=== PATIENT | male | born 1940 | race Caucasian/White ===

== ENCOUNTER 2018-02-07 17:08 | Inpatient (IN) | payer MEDICARE ==
[~2018-02-07] VITALS: Ht 188 cm; Wt 84.8 kg
[~2018-02-07 17:08] MED LIST: ACET-2900 PO; ASPI-555 PO; CHOL200013 PO; CYAN100T PO; ESCI5TAB PO; FISH1CAP63 PO; FOLI1TAB15 PO; FURO20TA6 PO; LACT10SO9 PO; LORA1TAB3 PO; MAGNESIUM PO; THIAM100TB PO; VITA1CAP85 PO
[2018-02-07 17:47] LABS: BASOPHILS % (AUTO) 0.8 % (0.0-5.0); EOSINOPHILS % (AUTO) 0.3 % (0.0-8.0); HEMATOCRIT 41.2 % (42-54); LYMPHOCYTES % (AUTO) 18.6 % (21.0-51.0); MEAN CORPUSCULAR HEMOGLOBIN 37.9 pg (27.0-33.0); MEAN CORPUSCULAR VOLUME 111.2 fL (79-99); MONOCYTES % (AUTO) 14.7 % (3.0-13.0); NEUTROPHILS % (AUTO) 65.6 % (40.0-77.0); NUCLEATED RED BLOOD CELLS 0.1 % (0.0-0.19); PLATELET COUNT (AUTO) 215 K/uL (130-400); RED BLOOD CELL COUNT(AUTO) 3.71 MIL/uL (4.50-6.20); WHITE BLOOD COUNT (AUTO) 7.1 K/uL (4.8-10.8)
[2018-02-07 17:52] LABS: APPEARANCE,URINE Clear (CLEAR); BILIRUBIN,URINE Negative (NEGATIVE); COLOR,URINE Dark Yellow (YELLOW); GLUCOSE, URINE (UA) Negative (NEGATIVE); KETONES,URINE 40 mg/dL (NEGATIVE); LEUKOCYTE ESTERASE ,URINE Trace (NEGATIVE); NITRATE,URINE Negative (NEGATIVE); OCCULT BLOOD,URINE Negative (NEGATIVE); PH,URINE 5.5 (5.0-8.0); PROTEIN,URINE Trace (NEGATIVE)
[2018-02-07 18:00] LABS: AMPHET/METH SCREEN,URINE NEGATIVE (NEGATIVE); BARBITURATE SCREEN, URINE NEGATIVE (NEGATIVE); BENZODIAZEPINES SCREEN,URINE NEGATIVE (NEGATIVE); CANNABINOID SCREEN,URINE NEGATIVE (NEGATIVE); COCAINE SCREEN,URINE NEGATIVE (NEGATIVE); OPIATE SCREEN,URINE NEGATIVE (NEGATIVE); PHENCYCLIDINE SCREEN,URINE NEGATIVE (NEGATIVE)
[2018-02-07 18:01] LABS: BACTERIA,URINE Few /HPF (None Seen); RBC,URINE None Seen /HPF (0-1); WBC,URINE 0-1 /HPF (0-1)
[2018-02-07 18:02] LABS: SQUAMOUS EPITHELIAL CELL,UR 0-2 /HPF (0-2)
[2018-02-07 18:03] LABS: MUCUS,URINE Many LPF (None Seen)
[2018-02-07] MEDS ORDERED: SODIUM CHLORIDE 0.9% 1000ML 1,000 ML IV ONE (18:08)
[2018-02-07 18:18] LABS: POTASSIUM 4.2 mmol/L (3.5-5.1)
[2018-02-07 18:23] LABS: ALBUMIN 2.9 g/dL (3.5-5.0); BILIRUBIN,TOTAL 1.3 mg/dL (0.2-1.0); TOTAL PROTEIN, SERUM 6.1 g/dL (6.0-8.3)
[2018-02-07 18:24] LABS: CREATINE KINASE, TOTAL 64 U/L (21-232)
[2018-02-07 18:25] LABS: ALCOHOL, BLOOD < 3 mg/dL (0-10)
[2018-02-07] MEDS ORDERED: SODIUM CHLORIDE 0.9% 10 ML VIAL IVP PRN (20:45)
[2018-02-07] MEDS ORDERED: NITROGLYCERIN 0.4 MG SL TAB SL PRN (20:45)
[2018-02-07] MEDS ORDERED: LACTULOSE 20 GM/30 ML UDCUP PO PRN ×2 (20:45→23:00)
[2018-02-07] MEDS ORDERED: ONDANSETRON HCL 4 MG/2 ML VIAL IVP PRN (20:45)
[2018-02-07] MEDS: DIAZEPAM 5 MG TABLET PO SCH (21:00)
[2018-02-07 21:54] LABS: TROPONIN I 0.07 ng/mL (0.00-0.06)
[2018-02-07] MEDS ORDERED: LORAZEPAM 1 MG TABLET PO PRN (23:00)
[2018-02-07] MEDS ORDERED: ACETAMINOPHEN EXTENDED RELEASE 650 MG TABLET PO PRN (23:00)
[2018-02-08 03:57] VITALS: BP 134/73
[2018-02-08] MEDS: SODIUM CHLORIDE 0.9% 1000ML 1,000 ML IV SCH ×3 (04:45→12:45)
[2018-02-08 05:19] LABS: BASOPHILS % (AUTO) 0.8 % (0.0-5.0); EOSINOPHILS % (AUTO) 0.4 % (0.0-8.0); HEMATOCRIT 39.6 % (42-54); LYMPHOCYTES % (AUTO) 26.8 % (21.0-51.0); MEAN CORPUSCULAR HGB CONC 35.3 g/dL (32.0-36.0); MEAN CORPUSCULAR VOLUME 110.7 fL (79-99); MONOCYTES % (AUTO) 12.2 % (3.0-13.0); NEUTROPHILS % (AUTO) 59.8 % (40.0-77.0); NUCLEATED RED BLOOD CELLS 0.1 % (0.0-0.19); PLATELET COUNT (AUTO) 225 K/uL (130-400); RED BLOOD CELL COUNT(AUTO) 3.57 MIL/uL (4.50-6.20); RED CELL DISTRIBUTION WIDTH 14.1 % (11.0-15.5); WHITE BLOOD COUNT (AUTO) 6.1 K/uL (4.8-10.8)
[2018-02-08 05:35] LABS: BILIRUBIN,TOTAL 1.4 mg/dL (0.2-1.0); CREATININE 0.9 mg/dL (0.5-1.5); POTASSIUM 4.5 mmol/L (3.5-5.1); TOTAL PROTEIN, SERUM 6.4 g/dL (6.0-8.3)
[2018-02-08 07:00] VITALS: BP 121/66
[2018-02-08] MEDS: LEVOFLOXACIN 500 MG/D5W 100 ML 100 ML IV SCH (08:07)
[2018-02-08] MEDS: THIAMINE HCL 100 MG TABLET PO SCH (08:08)
[2018-02-08] MEDS: ASPIRIN 81MG TAB.CHEW PO SCH (08:08)
[2018-02-08] MEDS: FUROSEMIDE 20 MG TABLET PO SCH (08:08)
[2018-02-08] MEDS: FISH OIL 1000 MG/CAP PO SCH (08:08)
[2018-02-08] MEDS: CITALOPRAM 20 MG TABLET PO SCH (08:08)
[2018-02-08] MEDS: FOLIC ACID 1 MG TABLET PO SCH (08:08)
[2018-02-08] MEDS: DIAZEPAM 5 MG TABLET PO SCH ×3 (09:00→21:13)
[2018-02-08] MEDS: ***HM***Cholecalciferol (Vitamin D3) 2,000 UNIT PO SCH (09:00)
[2018-02-08 11:00] VITALS: BP 112/60
[2018-02-08] MEDS: MAGNESIUM CHLORIDE 70 MG TABLET.SA PO SCH (11:47)
[2018-02-08] MEDS: CYANOCOBALAMIN (VITAMIN B-12) 100 MCG TABLET PO SCH (11:48)
[2018-02-08] MEDS: VITAMIN B COMPLEX 1 CAPSULE PO SCH (12:08)
[2018-02-08] MEDS ORDERED: PHARMACY COMMUNICATION MISC SCH (12:15)
[2018-02-08] MEDS: M.V.I. IV [ADULT] 10 ML, THIAMINE HCL 100 MG, FOLIC ACID 1 MG in SODIUM CHLORIDE 0.9% 1... IV SCH (12:45)
[2018-02-08 16:00] VITALS: BP 110/60
[2018-02-08 20:00] VITALS: BP 114/70
[2018-02-09] VITALS (7 sets, daily range): BP systolic 119–134; BP diastolic 66–76
[2018-02-09] MEDS: SODIUM CHLORIDE 0.9% 1000ML 1,000 ML IV SCH ×4 (02:16→20:40)
[2018-02-09] MEDS ORDERED: ALBUTEROL SULFATE 0.083% 2.5 MG/3 ML INH IH PRN (08:30)
[2018-02-09] MEDS: ***HM***Cholecalciferol (Vitamin D3) 2,000 UNIT PO SCH (09:00)
[2018-02-09] MEDS: MAGNESIUM CHLORIDE 70 MG TABLET.SA PO SCH (09:35)
[2018-02-09] MEDS: THIAMINE HCL 100 MG TABLET PO SCH (09:35)
[2018-02-09] MEDS: DIAZEPAM 5 MG TABLET PO SCH (09:35)
[2018-02-09] MEDS: LEVOFLOXACIN 500 MG/D5W 100 ML 100 ML IV SCH (09:35)
[2018-02-09] MEDS: CITALOPRAM 20 MG TABLET PO SCH (09:36)
[2018-02-09] MEDS: CYANOCOBALAMIN (VITAMIN B-12) 100 MCG TABLET PO SCH (09:36)
[2018-02-09] MEDS: FOLIC ACID 1 MG TABLET PO SCH (09:36)
[2018-02-09] MEDS: ASPIRIN 81MG TAB.CHEW PO SCH (09:36)
[2018-02-09] MEDS: FUROSEMIDE 20 MG TABLET PO SCH (09:36)
[2018-02-09] MEDS: VITAMIN B COMPLEX 1 CAPSULE PO SCH (09:36)
[2018-02-09] MEDS: FISH OIL 1000 MG/CAP PO SCH (09:36)
[2018-02-09] MEDS ORDERED: CHLORDIAZEPOXIDE HCL 25 MG CAP PO PRN (12:15)
[2018-02-10 04:00] VITALS: BP 129/70
[2018-02-10] MEDS: SODIUM CHLORIDE 0.9% 1000ML 1,000 ML IV SCH (04:09)
[2018-02-10 07:36] VITALS: BP 130/66
[2018-02-10 08:25] LABS: BASOPHILS % (AUTO) 1.1 % (0.0-5.0); EOSINOPHILS % (AUTO) 1.4 % (0.0-8.0); HEMATOCRIT 41.9 % (42-54); LYMPHOCYTES % (AUTO) 24.2 % (21.0-51.0); MEAN CORPUSCULAR HEMOGLOBIN 38.6 pg (27.0-33.0); MEAN CORPUSCULAR HGB CONC 34.8 g/dL (32.0-36.0); MEAN CORPUSCULAR VOLUME 110.9 fL (79-99); MONOCYTES % (AUTO) 10.3 % (3.0-13.0); PLATELET COUNT (AUTO) 183 K/uL (130-400); RED BLOOD CELL COUNT(AUTO) 3.78 MIL/uL (4.50-6.20); RED CELL DISTRIBUTION WIDTH 13.7 % (11.0-15.5); WHITE BLOOD COUNT (AUTO) 6.6 K/uL (4.8-10.8)
[2018-02-10 08:40] LABS: CREATININE 0.7 mg/dL (0.5-1.5); POTASSIUM 3.2 mmol/L (3.5-5.1)
[2018-02-10] MEDS: ***HM***Cholecalciferol (Vitamin D3) 2,000 UNIT PO SCH (09:00)
[2018-02-10] MEDS: M.V.I. IV [ADULT] 10 ML, THIAMINE HCL 100 MG, FOLIC ACID 1 MG in SODIUM CHLORIDE 0.9% 1... IV SCH (09:00)
[2018-02-10] MEDS: LEVOFLOXACIN 500 MG/D5W 100 ML 100 ML IV SCH (09:59)
[2018-02-10] MEDS: VITAMIN B COMPLEX 1 CAPSULE PO SCH (10:01)
[2018-02-10] MEDS: CITALOPRAM 20 MG TABLET PO SCH (10:01)
[2018-02-10] MEDS: MAGNESIUM CHLORIDE 70 MG TABLET.SA PO SCH (10:02)
[2018-02-10] MEDS: FOLIC ACID 1 MG TABLET PO SCH (10:02)
[2018-02-10] MEDS: CYANOCOBALAMIN (VITAMIN B-12) 100 MCG TABLET PO SCH (10:02)
[2018-02-10] MEDS: FISH OIL 1000 MG/CAP PO SCH (10:02)
[2018-02-10] MEDS: FUROSEMIDE 20 MG TABLET PO SCH (10:02)
[2018-02-10] MEDS: ASPIRIN 81MG TAB.CHEW PO SCH (10:02)
[2018-02-10] MEDS: THIAMINE HCL 100 MG TABLET PO SCH (10:02)
[2018-02-10 11:34] VITALS: BP 122/71
[2018-02-10] MEDS ORDERED: LIDOCAINE HCL-MPF 1% 2ML VIAL IVP PRN (15:30)
[2018-02-10] MEDS ORDERED: POTASSIUM CHLORIDE 20 MEQ ERTAB PO PRN (15:30)
[2018-02-10] MEDS ORDERED: POTASSIUM CHLORIDE 20MEQ/100ML 100 ML IV PRN (15:30)
[2018-02-10] MEDS ORDERED: POTASSIUM CHLORIDE 20 MEQ ERTAB PO ONE (15:31)
[2018-02-10 15:33] VITALS: BP 108/67
== END 2018-02-10 21:34 | DRG 948 ==
LOC: EDH 17:08 → EDHIP 20:10 → 3BH 02-08 02:51
PROVIDERS: ADMIT Hospitalist; ATTEND Hospitalist
DX: R53.1 Weakness (principal); N39.0 Urinary tract infection, site not specified; I48.92 Unspecified atrial flutter; R74.8 Abnormal levels of other serum enzymes; I25.10 Atherosclerotic heart disease of native coronary artery without angina pectoris; R29.6 Repeated falls; G62.9 Polyneuropathy, unspecified; R27.0 Ataxia, unspecified; K70.30 Alcoholic cirrhosis of liver without ascites; F17.200 Nicotine dependence, unspecified, uncomplicated; F10.20 Alcohol dependence, uncomplicated; I45.9 Conduction disorder, unspecified; Z95.0 Presence of cardiac pacemaker; Z86.73 Personal history of transient ischemic attack (TIA), and cerebral infarction without residual deficits; Z79.82 Long term (current) use of aspirin; Z80.0 Family history of malignant neoplasm of digestive organs; Z80.1 Family history of malignant neoplasm of trachea, bronchus and lung; Z81.8 Family history of other mental and behavioral disorders; Z82.0 Family history of epilepsy and other diseases of the nervous system; Z82.3 Family history of stroke; Z82.49 Family history of ischemic heart disease and other diseases of the circulatory system; Z82.5 Family history of asthma and other chronic lower respiratory diseases; Z83.3 Family history of diabetes mellitus; Z79.899 Other long term (current) drug therapy
CPT/HCPCS: 36415; 70450; 71045; 80048; 80053; 80305; 81001; 82550; 83874; 84425; 84484; 85025; 92522; 92610; 93005; 93306; 94664; 97039; G0480; J1956; J3411; J3490; J7030

== ENCOUNTER → 2018-03-30 | Outpatient (CLI) | payer MEDICARE | END | disposition home or self-care (01) | LOC: SHCH 11:35 | PROVIDERS: ATTEND Internal Medicine Cardiovascular Disease | DX: I48.92 Unspecified atrial flutter (principal); Z86.73 Personal history of transient ischemic attack (TIA), and cerebral infarction without residual deficits; Z72.89 Other problems related to lifestyle | CPT/HCPCS: 93306 ==

== ENCOUNTER 2019-01-02 11:03 | Emergency (ER) | payer MEDICARE ==
[~2019-01-02 11:03] MED LIST changes: -CYAN100T PO; +CYAN100T3 PO
[2019-01-02 11:19] LABS: BASOPHILS % (AUTO) 0.8 % (0.0-5.0); EOSINOPHILS % (AUTO) 0.6 % (0.0-8.0); HEMATOCRIT 42.3 % (42-54); LYMPHOCYTES % (AUTO) 14.8 % (21.0-51.0); MEAN CORPUSCULAR HEMOGLOBIN 35.1 pg (27.0-33.0); MEAN CORPUSCULAR HGB CONC 33.7 g/dL (32.0-36.0); MEAN CORPUSCULAR VOLUME 104.1 fL (79-99); MONOCYTES % (AUTO) 7.8 % (3.0-13.0); NUCLEATED RED BLOOD CELLS 0.1 % (0.0-0.19); PLATELET COUNT (AUTO) 239 K/uL (130-400); RED BLOOD CELL COUNT(AUTO) 4.06 MIL/uL (4.50-6.20); RED CELL DISTRIBUTION WIDTH 14.9 % (11.0-15.5); WHITE BLOOD COUNT (AUTO) 8.4 K/uL (4.8-10.8)
[2019-01-02] MEDS ORDERED: BISACODYL 10 MG SUPP.RECT RC ONE (11:22)
[2019-01-02 11:27] LABS: CREATININE 0.9 mg/dL (0.5-1.5); POTASSIUM 4.1 mmol/L (3.5-5.1)
[2019-01-02 11:31] LABS: ALBUMIN 3.3 g/dL (3.5-5.0); BILIRUBIN,DIRECT 0.4 mg/dL (0.0-0.3); TOTAL PROTEIN, SERUM 7.2 g/dL (6.0-8.3)
== END 2019-01-02 15:31 | disposition home or self-care (01) ==
LOC: EDH 11:03
DX: K59.00 Constipation, unspecified (principal); K74.60 Unspecified cirrhosis of liver; F32.9 Major depressive disorder, single episode, unspecified; F10.20 Alcohol dependence, uncomplicated; Y90.9 Presence of alcohol in blood, level not specified
CPT/HCPCS: 36415; 74018; 80048; 80076; 85025